=== PATIENT | male | born 1935 | race Caucasian/White ===

== ENCOUNTER → 2016-07-10 | Outpatient (CLI) | payer MEDICARE, OTHER ==
[~2016-07-10] MED LIST: ALBU6.7H4 IH; AMLO5TAB PO; ASCO-296 PO; ASPI-558 PO; BECL7.3A4 ORAL INH; CALC1TAB17 PO; FERR325C PO; FINA5TAB40 PO; FURO-35 PO; LISI40TA95 PO; MULT-806 PO; RANI-45 PO; SIMV20TA89 PO; TAMS0.4C20 PO; VITA1TAB PO; [UNRECOGNIZED DRUG - CODE] PO
--- NOTE | 2016-07-10 16:27 | DI ---
Indication: ITS.REASON: R59 Enlarged lymph nodes PROCEDURE: US SOFT TISSUE NECK: Encounter: Initial Comparison: None Technique: Grayscale and color Doppler sonographic imaging of the right neck area of palpable concern was performed. Findings: In the right neck palpable area of concern there is a hypoechoic somewhat ill-defined mass measuring 1.1 x 0.8 x 1.2 cm in size. Measurements are estimates since the margins are quite poorly defined. There is no internal Doppler vascularity or flow within this region. A normal-appearing lymph node with a fatty hilum was seen nearby. Impression: Indeterminate area of soft tissue thickening in the right neck palpable area of concern. Contrast-enhanced CT is suggested for further evaluation. .
== END ==
LOC: IMA 15:29
PROVIDERS: ATTEND Internal Medicine Hematology & Oncology
DX: M79.89 Other specified soft tissue disorders (principal)

== ENCOUNTER → 2016-07-16 | Outpatient (CLI) | payer MEDICARE, OTHER ==
[~2016-07-16] MED LIST changes: +LIDOCAINE 1% 30ml (STERI-PAK) ONE
--- NOTE | 2016-07-16 13:52 | DI ---
EXAM: US BIOPSY LYMPH NODE LOCATION OF DICTATION: [facility] HISTORY: ITS.REASON: R59 Localized enlarged lymph nodes COMPARISON: No prior studies available for comparison. Technique/finding: After obtaining informed consent and brief history, the right neck was prepped and draped in normal sterile fashion. 1% lidocaine was used for local anesthesia. A small dermatotomy was made. 18-gauge biopsy needle was deployed under ultrasound guidance into the superficial hypoechoic approximately 1 cm mass within the lateral right neck. A total of three core biopsy samples were obtained and placed in formalin. The needle was removed. The patient tolerated the procedure and left the department in good condition. IMPRESSION: 1. Successful ultrasound-guided biopsy of hypoechoic superficial nodular density within the lateral right neck. Pathologic interpretation is pending. .
== END ==
LOC: IMA 12:29
PROVIDERS: ATTEND Internal Medicine Hematology & Oncology
DX: D21.0 Benign neoplasm of connective and other soft tissue of head, face and neck (principal); R59.0 Localized enlarged lymph nodes
CPT/HCPCS: 38505; 88305